=== PATIENT | male | born 1980 | race Caucasian/White ===

== ENCOUNTER → 2016-11-09 | Outpatient (CLI) | payer OTHER ==
[~2016-11-09] MED LIST: NO HOME MEDICATIONS
--- NOTE | 2016-11-09 20:16 | Diagnostic Imaging Report ---
INDICATION: Right inguinal lesion. FINDINGS: Ultrasound of the right inguinal region was performed in routine fashion. There is a small hypoechoic area with internal echoes measuring 1.2 x 0.5 x 1.0 cm. This may be a small lymph node or small abscess. IMPRESSION: Nonspecific small hypoechoic lesion in the right inguinal region in subcutaneous fat. This measured about 1.2 x 0.5 x 1.0 cm. This may represent a small abscess or lymph node. This does not appear to be a simple cyst. Dictated by: Dictated on workstation # [id number]
== END ==
LOC: RAD 14:51
PROVIDERS: ATTEND Family Medicine
DX: R19.09 Other intra-abdominal and pelvic swelling, mass and lump (principal)
CPT/HCPCS: 76857